=== PATIENT | male | born 1960 ===

== ENCOUNTER 2024-07-02 14:00 | Outpatient (RCR) | payer OTHER, SELFPAY ==
[2024-07-02 14:31] LABS: Abs Immature Grans 0.11 10^3/uL (0.0-0.06); Absolute Eosinophil Count 0.33 10^3/uL (0.0-0.7); Absolute Lymphocyte Count 0.85 10^3/uL (1.2-3.4); Absolute Neutrophil Count 8.25 10^3/uL (1.2-6.7); Basophils % 0.9 %; Eosinophils % 2.9 %; HCT 42.5 % (40.0-50.0); HGB 13.5 g/dL (13.5-17.5); Lymphocytes % 7.6 %; MCH 27.9 pg (27.0-33.0); MCHC 31.8 % (32.0-36.0); MCV 88 fL (80-95); MPV 8.7 fL (8.0-11.0); Neutrophils % 73.4 %; Platelet Count 384 10^3/uL (130-400); RBC 4.84 10^6/uL (4.36-5.78); RDW 13.5 % (11.8-14.1); RDW-SD 43.7 fL; WBC 11.24 10^3/uL (4.4-10.8)
[2024-07-02 14:40] LABS: Monocytes % 14.2 %
[2024-07-02 14:52] LABS: ALT 11 U/L (16-63); AST 15 U/L (15-37); Albumin 3.1 g/dL (3.4-5.0); Alkaline Phosphatase 101 U/L (46-116); Anion Gap 8.3 mmol/L (3-11); BUN 17 mg/dL (7-18); Bilirubin, Total 0.17 mg/dL (0.2-1.0); CO2 29.7 mmol/L (21.0-32.0); CREATININE 0.8 mg/dL (0.70-1.30); Calcium 9.1 mg/dL (8.5-10.1); Chloride 103 mmol/L (98-107); Estimated GFR 98.83 (mL/min/1.73m2); Glucose 94 mg/dL (74-106); Potassium 3.8 mmol/L (3.5-5.1); Sodium 141 mmol/L (136-145); Total Protein 7.2 g/dL (6.4-8.2)
== END 2024-07-10 23:59 | disposition home or self-care (01) ==
LOC: INF 14:00
PROVIDERS: Visit Provider Internal Medicine Hematology & Oncology
DX: C20 Malignant neoplasm of rectum (principal)
CPT/HCPCS: 36415; 80053; 85025

== ENCOUNTER 2024-07-08 04:09 | Outpatient (CLI) | payer OTHER, SELFPAY ==
[2024-07-08 10:37] LABS: Absolute Basophil Count 0.09 10^3/uL (0.0-0.2); Absolute Eosinophil Count 0.21 10^3/uL (0.0-0.7); Absolute Lymphocyte Count 0.43 10^3/uL (1.2-3.4); Absolute Monocyte Count 0.84 10^3/uL (0.1-0.8); Basophils % 1.3 %; Eosinophils % 3.1 %; HCT 38.6 % (40.0-50.0); HGB 12.1 g/dL (13.5-17.5); Immature Grans % 2.9 %; Lymphocytes % 6.3 %; MCH 27.9 pg (27.0-33.0); MCHC 31.3 % (32.0-36.0); MCV 89 fL (80-95); Monocytes % 12.2 %; Neutrophils % 74.2 %; Platelet Count 275 10^3/uL (130-400); RBC 4.33 10^6/uL (4.36-5.78); RDW 14.4 % (11.8-14.1); RDW-SD 46.1 fL; WBC 6.87 10^3/uL (4.4-10.8)
[2024-07-08 10:51] LABS: ALT 13 U/L (16-63); AST 11 U/L (15-37); Albumin 2.9 g/dL (3.4-5.0); Alkaline Phosphatase 89 U/L (46-116); Anion Gap 1.9 mmol/L (3-11); BUN 11 mg/dL (7-18); CO2 37.1 mmol/L (21.0-32.0); CREATININE 0.7 mg/dL (0.70-1.30); Calcium 8.5 mg/dL (8.5-10.1); Chloride 103 mmol/L (98-107); Estimated GFR 102.89 (mL/min/1.73m2); Glucose 85 mg/dL (74-106); Potassium 3.8 mmol/L (3.5-5.1); Sodium 142 mmol/L (136-145); Total Protein 6.7 g/dL (6.4-8.2)
== END 2024-07-08 04:10 | disposition home or self-care (01) ==
LOC: LBO 04:10
PROVIDERS: Visit Provider Internal Medicine Hematology & Oncology
DX: C20 Malignant neoplasm of rectum (principal)
CPT/HCPCS: 36415; 80053; 85025

== ENCOUNTER 2024-07-15 01:10 | Outpatient (CLI) | payer OTHER, SELFPAY ==
[2024-07-15 15:05] LABS: Abs Immature Grans 0.05 10^3/uL (0.0-0.06); Absolute Basophil Count 0.04 10^3/uL (0.0-0.2); Absolute Eosinophil Count 0.21 10^3/uL (0.0-0.7); Absolute Lymphocyte Count 0.41 10^3/uL (1.2-3.4); Absolute Monocyte Count 0.88 10^3/uL (0.1-0.8); Absolute Neutrophil Count 5.32 10^3/uL (1.2-6.7); Basophils % 0.6 %; HCT 39.2 % (40.0-50.0); HGB 12.3 g/dL (13.5-17.5); Immature Grans % 0.7 %; Lymphocytes % 5.9 %; MCH 27.8 pg (27.0-33.0); MCHC 31.4 % (32.0-36.0); MCV 89 fL (80-95); MPV 8.4 fL (8.0-11.0); Monocytes % 12.7 %; Neutrophils % 77.1 %; Platelet Count 283 10^3/uL (130-400); RBC 4.43 10^6/uL (4.36-5.78); RDW 15.6 % (11.8-14.1); RDW-SD 46.8 fL; WBC 6.91 10^3/uL (4.4-10.8)
[2024-07-15 16:06] LABS: ALT 8 U/L (16-63); AST 12 U/L (15-37); Albumin 3.1 g/dL (3.4-5.0); Alkaline Phosphatase 81 U/L (46-116); Anion Gap 1.5 mmol/L (3-11); BUN 16 mg/dL (7-18); CO2 38.5 mmol/L (21.0-32.0); CREATININE 0.8 mg/dL (0.70-1.30); Calcium 9.1 mg/dL (8.5-10.1); Chloride 103 mmol/L (98-107); Estimated GFR 98.83 (mL/min/1.73m2); Glucose 92 mg/dL (74-106); Potassium 4.1 mmol/L (3.5-5.1); Sodium 143 mmol/L (136-145); Total Protein 6.7 g/dL (6.4-8.2)
== END 2024-07-15 01:11 | disposition home or self-care (01) ==
PROVIDERS: Visit Provider Internal Medicine Hematology & Oncology
DX: C20 Malignant neoplasm of rectum (principal)
CPT/HCPCS: 36415; 80053; 85025

== ENCOUNTER 2024-07-22 04:10 | Outpatient (CLI) | payer OTHER, SELFPAY ==
[2024-07-22 15:31] LABS: Abs Immature Grans 0.05 10^3/uL (0.0-0.06); Absolute Basophil Count 0.06 10^3/uL (0.0-0.2); Absolute Eosinophil Count 0.17 10^3/uL (0.0-0.7); Absolute Lymphocyte Count 0.32 10^3/uL (1.2-3.4); Absolute Monocyte Count 0.76 10^3/uL (0.1-0.8); Absolute Neutrophil Count 2.59 10^3/uL (1.2-6.7); Basophils % 1.5 %; Eosinophils % 4.3 %; HCT 38.3 % (40.0-50.0); HGB 12.2 g/dL (13.5-17.5); Immature Grans % 1.3 %; Lymphocytes % 8.1 %; MCH 28.2 pg (27.0-33.0); MCHC 31.9 % (32.0-36.0); MCV 89 fL (80-95); Monocytes % 19.2 %; Neutrophils % 65.6 %; Platelet Count 240 10^3/uL (130-400); RBC 4.33 10^6/uL (4.36-5.78); RDW 17.2 % (11.8-14.1); RDW-SD 48.7 fL; WBC 3.95 10^3/uL (4.4-10.8)
[2024-07-22 15:53] LABS: ALT 12 U/L (16-63); AST 10 U/L (15-37); Alkaline Phosphatase 79 U/L (46-116); Anion Gap 2.9 mmol/L (3-11); BUN 9 mg/dL (7-18); Bilirubin, Total 0.27 mg/dL (0.2-1.0); CO2 35.1 mmol/L (21.0-32.0); CREATININE 0.7 mg/dL (0.70-1.30); Calcium 8.5 mg/dL (8.5-10.1); Chloride 104 mmol/L (98-107); Estimated GFR 102.89 (mL/min/1.73m2); Glucose 89 mg/dL (74-106); Potassium 3.8 mmol/L (3.5-5.1); Sodium 142 mmol/L (136-145); Total Protein 6.6 g/dL (6.4-8.2)
== END 2024-07-22 04:11 | disposition home or self-care (01) ==
LOC: LBO 04:11
PROVIDERS: Visit Provider Internal Medicine Hematology & Oncology
DX: C20 Malignant neoplasm of rectum (principal)
CPT/HCPCS: 36415; 80053; 85025

== ENCOUNTER 2024-07-29 12:59 | Outpatient (CLI) | payer OTHER, SELFPAY ==
[2024-07-29 15:09] LABS: Abs Immature Grans 0.04 10^3/uL (0.0-0.06); Absolute Basophil Count 0.07 10^3/uL (0.0-0.2); Absolute Eosinophil Count 0.19 10^3/uL (0.0-0.7); Absolute Neutrophil Count 3.43 10^3/uL (1.2-6.7); Basophils % 1.4 %; Eosinophils % 3.9 %; HCT 38.6 % (40.0-50.0); HGB 12.6 g/dL (13.5-17.5); Immature Grans % 0.8 %; Lymphocytes % 6.2 %; MCH 28.3 pg (27.0-33.0); MCHC 32.6 % (32.0-36.0); MCV 87 fL (80-95); MPV 8.2 fL (8.0-11.0); Monocytes % 16.6 %; Neutrophils % 71.1 %; Platelet Count 212 10^3/uL (130-400); RBC 4.45 10^6/uL (4.36-5.78); RDW 18.7 % (11.8-14.1); RDW-SD 50.2 fL; WBC 4.83 10^3/uL (4.4-10.8)
[2024-07-29 15:31] LABS: ALT 8 U/L (16-63); AST 9 U/L (15-37); Albumin 3.2 g/dL (3.4-5.0); Alkaline Phosphatase 78 U/L (46-116); Anion Gap 4.3 mmol/L (3-11); BUN 12 mg/dL (7-18); CO2 33.7 mmol/L (21.0-32.0); CREATININE 0.8 mg/dL (0.70-1.30); Chloride 104 mmol/L (98-107); Estimated GFR 98.83 (mL/min/1.73m2); Glucose 96 mg/dL (74-106); Sodium 142 mmol/L (136-145); Total Protein 6.9 g/dL (6.4-8.2)
== END 2024-07-29 13:00 | disposition home or self-care (01) ==
LOC: LBO 13:01
PROVIDERS: Visit Provider Internal Medicine Hematology & Oncology
DX: C20 Malignant neoplasm of rectum (principal)
CPT/HCPCS: 36415; 80053; 85025

== ENCOUNTER 2024-08-05 07:37 | Outpatient (CLI) | payer OTHER, SELFPAY ==
[2024-08-05 15:39] LABS: Absolute Basophil Count 0.09 10^3/uL (0.0-0.2); Absolute Eosinophil Count 0.45 10^3/uL (0.0-0.7); Absolute Lymphocyte Count 0.36 10^3/uL (1.2-3.4); Absolute Neutrophil Count 3.94 10^3/uL (1.2-6.7); Basophils % 1.5 %; Eosinophils % 7.6 %; HGB 13.5 g/dL (13.5-17.5); Immature Grans % 1.7 %; Lymphocytes % 6.1 %; MCH 28.8 pg (27.0-33.0); MCHC 32.9 % (32.0-36.0); MCV 87 fL (80-95); MPV 7.8 fL (8.0-11.0); Monocytes % 16.8 %; Neutrophils % 66.3 %; Platelet Count 227 10^3/uL (130-400); RBC 4.69 10^6/uL (4.36-5.78); RDW 20.3 % (11.8-14.1); RDW-SD 53.7 fL; WBC 5.94 10^3/uL (4.4-10.8)
[2024-08-05 16:21] LABS: Anisocytosis 1+; Diff Comment RBC Morph Reviewed
[2024-08-05 16:23] LABS: ALT 12 U/L (16-63); AST 11 U/L (15-37); Albumin 3.4 g/dL (3.4-5.0); Alkaline Phosphatase 98 U/L (46-116); Anion Gap 7.5 mmol/L (3-11); BUN 13 mg/dL (7-18); Bilirubin, Total 0.42 mg/dL (0.2-1.0); CO2 32.5 mmol/L (21.0-32.0); CREATININE 0.9 mg/dL (0.70-1.30); Chloride 101 mmol/L (98-107); Estimated GFR 95.37 (mL/min/1.73m2); Glucose 98 mg/dL (74-106); Sodium 141 mmol/L (136-145); Total Protein 7.1 g/dL (6.4-8.2)
== END 2024-08-05 07:38 | disposition home or self-care (01) ==
LOC: LBO 07:38
PROVIDERS: Visit Provider Internal Medicine Hematology & Oncology
DX: C20 Malignant neoplasm of rectum (principal)
CPT/HCPCS: 36415; 80053; 85025